=== PATIENT | male | born 1975 | race Caucasian/White ===

== ENCOUNTER 2018-01-11 18:46 | Emergency (ER) | payer SELFPAY ==
[~2018-01-11] VITALS: Ht 190.5 cm; Wt 90.7 kg
[2018-01-11] MEDS ORDERED: HYDROCODONE/APAP 10/325MG 1 EA TABLET ONE (19:24)
[2018-01-11] MEDS: HYDROCODONE/APAP 10/325MG 1 EA TABLET PO ONE (19:27)
[2018-01-11] MEDS ORDERED: TDAP [DIPH/PERTUSSIS/TET] 0.5 ML VIAL IM ONE (19:30)
[2018-01-11 21:08] VITALS: BP 136/87
== END 2018-01-11 21:12 | disposition home or self-care (01) ==
LOC: ER 18:48
DX: S61.031A Puncture wound without foreign body of right thumb without damage to nail, initial encounter (principal); Z88.1 Allergy status to other antibiotic agents; Z91.018 Allergy to other foods; W45.0XXA Nail entering through skin, initial encounter; Y93.89 Activity, other specified; Y92.89 Other specified places as the place of occurrence of the external cause; Y99.0 Civilian activity done for income or pay
CPT/HCPCS: 73130-TC; A4606; Z7610

== ENCOUNTER 2022-03-26 16:50 | Emergency (ER) | payer BC, OTHER ==
[~2022-03-26] VITALS: Ht 190.5 cm; Wt 74.8 kg
[2022-03-26] MEDS ORDERED: CYCLOBENZAPRINE 10 MG TABLET PO ONE (17:30)
[2022-03-26] MEDS ORDERED: KETOROLAC TROMETHAMINE INJ 30 MG/ML VIAL IM ONE (17:30)
--- NOTE | 2022-03-26 17:30 | NUR ---
46 YRS MALE C/O chest pain for 2 days goting worse today ekg done
[2022-03-26] MEDS ORDERED: KETOROLAC TROMETHAMINE INJ 30 MG/ML VIAL ONE (17:39)
[2022-03-26] MEDS ORDERED: CYCLOBENZAPRINE 10 MG TABLET ONE (17:39)
[2022-03-26] MEDS ORDERED: CYCL5TAB PO (18:42)
[2022-03-26] MEDS ORDERED: IBUP-1957 PO (18:42)
--- NOTE | 2022-03-26 19:00 | NUR ---
D/ ISTRACTION GIVEN TO PT FULLY UNDERSTOOD DINEAS PAIN OR SOB
[2022-03-26 19:32] VITALS: BP 127/83
== END 2022-03-26 19:34 | disposition home or self-care (01) ==
LOC: ER 16:58
DX: S29.011A Strain of muscle and tendon of front wall of thorax, initial encounter (principal); Z88.8 Allergy status to other drugs, medicaments and biological substances; Z91.018 Allergy to other foods; Z60.2 Problems related to living alone; Z79.899 Other long term (current) drug therapy; X58.XXXA Exposure to other specified factors, initial encounter; Y93.89 Activity, other specified; Y92.89 Other specified places as the place of occurrence of the external cause; Y99.8 Other external cause status
CPT/HCPCS: 71045; 93005; 96372; 99283; J1885

== ENCOUNTER 2023-10-29 19:26 | Emergency (ER) | payer BC ==
[~2023-10-29] VITALS: Ht 190.5 cm; Wt 86.2 kg
[~2023-10-29 19:26] MED LIST: CYCL5TAB PO; IBUP-1957 PO
[2023-10-29] MEDS ORDERED: LIDOCAINE HCL/MPF 1% 30 ML VIAL IJ ONE (20:10)
[2023-10-29] MEDS ORDERED: HYDROCODONE/APAP 5/325MG TABLET ONE ×2 (20:10→20:57)
[2023-10-29] MEDS ORDERED: TDAP [DIPH/PERTUSSIS/TET] 0.5 ML VIAL IM ONE ×2 (20:11→20:30)
[2023-10-29] MEDS ORDERED: LIDOCAINE HCL/PF 1% 30 ML VIAL TP ONE (20:30)
[2023-10-29] MEDS ORDERED: HYDROCODONE/APAP 5/325MG TABLET PO ONE ×2 (20:30→21:00)
[2023-10-29] MEDS ORDERED: IBUP-1955 PO (21:43)
[2023-10-29] MEDS ORDERED: HYDR-4209 PO (21:43)
[2023-10-29 22:01] VITALS: BP 141/89; TEMP 98; O2SAT 99
== END 2023-10-29 22:02 | disposition home or self-care (01) ==
LOC: ER 19:31
DX: S52.591A Other fractures of lower end of right radius, initial encounter for closed fracture (principal); S01.81XA Laceration without foreign body of other part of head, initial encounter; Z79.899 Other long term (current) drug therapy; Z98.890 Other specified postprocedural states; Z60.2 Problems related to living alone; Z88.1 Allergy status to other antibiotic agents; W17.89XA Other fall from one level to another, initial encounter; Y93.21 Activity, ice skating; Y92.89 Other specified places as the place of occurrence of the external cause; Y99.8 Other external cause status
CPT/HCPCS: 12013; 29125; 70450; 72125; 73110; 99284; J3490; 90715

== ENCOUNTER 2023-10-30 09:50 | Emergency (ER) | payer BC ==
[~2023-10-30] VITALS: Ht 185.4 cm; Wt 78.9 kg
[~2023-10-30 09:50] MED LIST changes: +HYDR-4209 PO; +IBUP-1955 PO
[2023-10-30 10:49] VITALS: BP 131/64; TEMP 98.4; O2SAT 100
== END 2023-10-30 10:52 | disposition home or self-care (01) ==
LOC: ER 09:50
DX: Z47.89 Encounter for other orthopedic aftercare (principal)